=== PATIENT | female | born 1975 | race African-American/Black ===

== ENCOUNTER 2019-08-22 11:03 | Emergency (ER) | payer MEDICARE, MEDICAID, OTHER ==
[~2019-08-22] VITALS: Ht 165.1 cm; Wt 81.5 kg
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
[2019-08-22] MEDS ORDERED: KETOROLAC 30 MG/1 ML ONE (11:33)
[2019-08-22] MEDS ORDERED: KETOROLAC 30 MG/1 ML IM ONE (12:00)
[2019-08-22 14:58] VITALS: BP 137/79
== END 2019-08-22 15:06 | disposition home or self-care (01) ==
LOC: ED 11:59
DX: S92.335A Nondisplaced fracture of third metatarsal bone, left foot, initial encounter for closed fracture (principal); S70.02XA Contusion of left hip, initial encounter; F17.210 Nicotine dependence, cigarettes, uncomplicated; V09.9XXA Pedestrian injured in unspecified transport accident, initial encounter; Y93.89 Activity, other specified; Y92.488 Other paved roadways as the place of occurrence of the external cause; Y99.8 Other external cause status
CPT/HCPCS: 29515; 73502; 73630; 96372; 99284; J1885